=== PATIENT | female | born 1995 | race Caucasian/White ===

== ENCOUNTER 2022-11-17 08:32 | Outpatient (OUT) | payer OTHER, SELFPAY ==
[2022-11-17 09:16] LABS: Chol HDL Ratio 4.2; Cholesterol 212 mg/dL (<=200); HDL Cholesterol 51 mg/dL (40-60); Triglycerides 208 mg/dL (<=150); VLDL CHOLESTEROL 41.6 mg/dL
[2022-11-17 09:22] LABS: Estimated Average Glucose 91 mg/dL; Glycohemoglobin A1C 4.8 % (4.5-6.2)
== END 2022-11-17 08:33 | disposition home or self-care (01) ==
LOC: LAB 08:35
PROVIDERS: PCP Internal Medicine; Visit Provider Internal Medicine
DX: Z00.00 Encounter for general adult medical examination without abnormal findings (principal)
CPT/HCPCS: 36415; 80061; 83036

== ENCOUNTER 2023-07-21 15:12 | Outpatient (OUT) | payer OTHER, SELFPAY ==
[2023-07-21 15:55] LABS: Thyroid Stimulating Hormone 2.024 uIU/mL (0.358-3.740)
== END 2023-07-21 15:13 | disposition home or self-care (01) ==
PROVIDERS: PCP Internal Medicine; Visit Provider Internal Medicine
DX: R00.2 Palpitations (principal)
CPT/HCPCS: 36415; 84443